=== PATIENT | male | born 1990 | race African-American/Black ===

== ENCOUNTER 2017-03-21 11:31 | Emergency (ER) | payer SELFPAY ==
[2017-03-21 11:42] VITALS: BP 150/70
[2017-03-21] MEDS ORDERED: METHOCARBAMOL 500 MG TABLET PO ONE (13:44)
[2017-03-21] MEDS ORDERED: NAPROXEN 250 MG TABLET PO ONE (13:44)
--- NOTE | 2017-03-21 13:50 | ER Document Report ---
ED Neck/Back Problem - General Chief Complaint: Back Pain Stated Complaint: LOW BACK PAIN Time Seen by Provider: 03/21/17 13:26 Mode of Arrival: Ambulatory Information source: Patient Notes: 26-year-old male presents to ED for complaint of back pain 2 days in his lower back. He states he was moving furniture and thinks he injured his back at work. Right lower back is where his pain is. He has no vertebral tenderness. He ambulates freely with no acute distress noted. TRAVEL OUTSIDE OF THE [place] IN LAST 30 DAYS: No - HPI Patient complains to provider of: Lower back Onset: Other - 2 days Where: Work Onset: Gradual Timing: Still present, Better Quality of pain: Sharp Severity: Mild Pain Level: 1 Context: Lifting Recent injury: Yes Associated symptoms: Lower back pain. denies: Constipation, Incontinence, Like prior neck/back pain, Motor loss, Numbness/tingling, Radiation to leg, Sensory loss, Unable to urinate Exacerbated by: Movement of trunk Relieved by: Nothing Similar symptoms previously: No Recently seen / treated by doctor: No - Related Data Allergies/Adverse Reactions: No Known Allergies Allergy (Unverified 03/21/17 11:40) Past Medical History - General Information source: Patient - Social History Smoking Status: Current Every Day Smoker Cigarette use (# per day): Yes - 6-7 cigarettes a day Chew tobacco use (# tins/day): No Smoking Education Provided: Yes - less than 1 minute Frequency of alcohol use: Social Drug Abuse: None Occupation: Furniture store Lives with: Spouse/Significant other Family History: Arthritis, Hypertension Patient has suicidal ideation: No Patient has homicidal ideation: No - Past Medical History Cardiac Medical History: Reports: None Pulmonary Medical History: Reports: None EENT Medical History: Reports: None Neurological Medical History: Reports: None Endocrine Medical History: Reports: None Renal/ Medical History: Reports: None Malignancy Medical History: Reports None GI Medical History: Reports: None Musculoskeltal Medical History: Reports Hx Musculoskeletal Trauma Skin Medical History: Reports None Psychiatric Medical History: Reports: None Traumatic Medical History: Reports: None Infectious Medical History: Reports: None Surgical Hx: Negative - Immunizations Hx Diphtheria, Pertussis, Tetanus Vaccination: No Review of Systems - Review of Systems Constitutional: No symptoms reported EENT: No symptoms reported Cardiovascular: No symptoms reported Respiratory: No symptoms reported Gastrointestinal: No symptoms reported. denies: Constipation, Last bowel movement, Fecal incontinence Genitourinary: No symptoms reported. denies: Hematuria, Incontinence, Retention Male Genitourinary: No symptoms reported Musculoskeletal: Back pain Skin: No symptoms reported Hematologic/Lymphatic: No symptoms reported Neurological/Psychological: No symptoms reported -: Yes All other systems reviewed and negative Physical Exam - Vital signs Vitals: Temp Pulse Resp BP Pulse Ox 98.5 F 76 18 150/70 H 98 03/21/17 11:41 03/21/17 11:41 03/21/17 11:41 03/21/17 11:41 03/21/17 11:41 Interpretation: Normal - General General appearance: Appears well, Alert - HEENT Head: Normocephalic, Atraumatic Eyes: Normal Pupils: PERRL - Respiratory Respiratory status: No respiratory distress Chest status: Nontender Breath sounds: Normal Chest palpation: Normal - Cardiovascular Rhythm: Regular Heart sounds: Normal auscultation Murmur: No - Abdominal Inspection: Normal Distension: No distension Bowel sounds: Normal Tenderness: Nontender Organomegaly: No organomegaly - Back Back: Normal, Tender - Right lower back. No: Deformity/step-off, CVA tenderness , Vertebra tenderness, Scars, Scoliosis, Wounds - Extremities General upper extremity: Normal inspection, Nontender, Normal color, Normal ROM , Normal temperature General lower extremity: Normal inspection, Nontender, Normal color, Normal ROM , Normal temperature, Normal weight bearing. No: Blake's sign - Neurological Neuro grossly intact: Yes Cognition: Normal Orientation: AAOx4 Michelle Coma Scale Eye Opening: Spontaneous Michelle Coma Scale Verbal: Oriented Michelle Coma Scale Motor: Obeys Commands Michelle Coma Scale Total: 15 Speech: Normal Motor strength normal: LUE, RUE, LLE, RLE Sensory: Normal - Psychological Associated symptoms: Normal affect, Normal mood - Skin Skin Temperature: Warm Skin Moisture: Dry Skin Color: Normal Course - Re-evaluation Re-evalutation: 03/21/17 20:44 No signs of cauda equina no signs loss of sensation control of bowel bladder no urinary retention no constipation. Patient discharged home with anti- inflammatories and muscle relaxers. - Vital Signs Vital signs: Temp Pulse Resp BP Pulse Ox 98.5 F 76 18 150/70 H 98 03/21/17 11:41 03/21/17 11:41 03/21/17 11:41 03/21/17 11:41 03/21/17 11:41 Discharge - Discharge Clinical Impression: Low back pain Qualifiers: Chronicity: acute Back pain laterality: right Sciatica presence: without sciatica Qualified Code(s): M54.5 - Low back pain Condition: Stable Disposition: HOME, SELF-CARE Instructions: Stretching Exercises for the Back ([facility]), Family Physicians / Practices Additional Instructions: LOW BACK PAIN: Three out of every four people will have an episode of disabling back pain during their lifetime. Most commonly the pain is due to straining of the muscles and ligaments in the low back. Usual treatment includes: (1) Rest on a firm surface. Avoid lying on your stomach. (2) Ice pack the painful area. After a few days, gentle heat may be used intermittently to relax the area, or ice packs can be continued. (3) Medication may be needed -- muscle relaxers and antiinflammatory medicines are commonly used. (4) As the back improves, exercises are prescribed to strengthen the back and abdominal muscles. Your doctor will advise you on the proper care for your back at each stage in your recovery. You may be better in a few days -- or healing may take several weeks. If new symptoms of a "herniated disc" (radiation of pain, numbness, or tingling down the back of the leg or weakness in the leg) occur, you should be re-examined. Further testing may be necessary. Anti-Inflammatory Medication You have received a prescription for an antiinflammatory agent. This is an excellent, safe drug for pain control. In addition, it has potent antiinflammatory effects which are beneficial, especially in the treatment of injuries, arthritis, or tendonitis. It's best to take this medicine with food. Persons with ulcer disease or allergy to aspirin should notify their physician of this before taking this drug. Take the medication exactly as prescribed. Don't take additional doses unless instructed to do so by your doctor. If you develop wheezing, shortness of breath, hives, faintness, stomach pain, vomiting, or dark black stools, return for re-evaluation at once. MUSCLE RELAXERS: Muscle relaxing medications are usually prescribed for acute muscle spasm or injury to the neck and back. They are often combined with antiinflammatory pain medication for increased relief. You may stop the muscle relaxer when the pain and stiffness have improved. Start the medication again if spasms recur. Muscle relaxers may cause drowsiness, especially with the first dose. Do not operate machinery or drive while under the effects of the medication. Most muscle relaxers last up to 24 hours. Do not combine the medication with alcohol. ICE PACKS: Apply ice packs frequently against the painful area. Many different schedules are recommended, such as "20 minutes on, 20 minutes off" or "one hour ice, two hours rest." If you need to work, you may need to go longer between ice treatments. You should plan to have the area ice packed AT LEAST one fourth of the time. The ice should be applied over the wrap, tape, or splint, or over a layer of cloth -- not directly against the skin. Some ice bags have a built-in cloth and can be put directly on the skin. WARM PACKS: After approximately two days, apply gentle heat (such as a heating pad or hot water bottle) for about 20 to 30 minutes about every two hours -- at least four times daily. Warmth and elevation will help you make a more rapid recovery , and will ease the pain considerably. Do not use HOT heat, and never apply heat for longer than 30 minutes. The continuous heat can invisibly damage skin and muscles -- even when no burn is seen on the surface. Damaged muscles can make you MORE sore. FOLLOW-UP CARE: If you have been referred to a physician for follow-up care, call the physician s office for an appointment as you were instructed or within the next two days. If you experience worsening or a significant change in your symptoms, notify the physician immediately or return to the Emergency Department at any time for re-evaluation. Prescriptions: Methocarbamol [Robaxin 500 mg Tablet] 500 mg PO BIDP PRN #14 tablet PRN Reason: Naproxen 500 mg PO BIDP PRN #14 tablet PRN Reason: Forms: Elevated Blood Pressure, Smoking Cessation Education, Return to Work
== END 2017-03-21 14:07 | disposition home or self-care (01) ==
LOC: ER 11:31
DX: M54.5 Low back pain (principal); F17.210 Nicotine dependence, cigarettes, uncomplicated; X58.XXXA Exposure to other specified factors, initial encounter; Y99.0 Civilian activity done for income or pay
CPT/HCPCS: 99283

== ENCOUNTER 2019-09-25 19:26 | Emergency (ER) | payer BC ==
[2019-09-25 19:39] VITALS: BP 161/77
[2019-09-25] MEDS ORDERED: IBUPROFEN 800 MG TABLET PO ONE (19:54)
--- NOTE | 2019-09-25 20:02 | ER Document Report ---
HPI - HPI Patient complains to provider of: right knee pain Time Seen by Provider: 09/25/19 19:51 Onset: Other Quality of pain: Achy Pain Level: 1 Context: This 29-year-old male relatively healthy who presents emergency department with complaints of right knee pain. Reports he has had knee pain for many years but recently started a new job moving furniture. Reports he is going up and down steps more his knee starts hurting feels that popping. Denies past medical history of injury to the knee. Denies trauma. No other complaints such as fever vomiting diarrhea. Patient reports he took BC powders without relief of symptoms. Associated Symptoms: None Exacerbated by: Movement Relieved by: Denies Similar symptoms previously: Yes Recently seen / treated by doctor: No - MUSCULOSKELETAL Musculoskeletal: REPORTS: Extremity pain - rt knee Past Medical History - General Information source: Patient - Social History Smoking Status: Current Every Day Smoker Cigarette use (# per day): Yes Frequency of alcohol use: Occasional Drug Abuse: None Occupation: Moving furniture Family History: Arthritis, Hypertension Patient has suicidal ideation: No Patient has homicidal ideation: No - Past Medical History Cardiac Medical History: Denies: Hx Coronary Artery Disease Pulmonary Medical History: Denies: Hx Asthma Endocrine Medical History: Denies: Hx Diabetes Mellitus Type 1, Hx Diabetes Mellitus Type 2 Renal/ Medical History: Denies: Hx Peritoneal Dialysis Musculoskeletal Medical History: Reports Hx Musculoskeletal Trauma Surgical Hx: Negative - Immunizations Hx Diphtheria, Pertussis, Tetanus Vaccination: No Vertical Provider Document - CONSTITUTIONAL Agree With Documented VS: Yes Exam Limitations: No Limitations General Appearance: WD/WN, No Apparent Distress - INFECTION CONTROL TRAVEL OUTSIDE OF THE [place] IN LAST 30 DAYS: No - HEENT HEENT: Atraumatic, Normocephalic - NECK Neck: Supple - RESPIRATORY Respiratory: No Respiratory Distress - CARDIOVASCULAR Cardiovascular: Regular Rate - MUSCULOSKELETAL/EXTREMETIES Musculoskeletal/Extremeties: MAEW, FROM, Non-Tender - Right knee nontender to palpation. Patient reports no pain at this time. No erythema no swelling no warmth no obvious deformity flexes and extends leg without problems - NEURO Level of Consciousness: Awake, Alert, Appropriate Motor/Sensory: No Motor Deficit - DERM Integumentary: Warm, Dry Adult Front & Back Diagram: 1 - Reports knee pain. Reports he feels it pop every now and then. Course - Re-evaluation Re-evalutation: 09/25/19 20:00 29-year-old male presents emergency department with complaints of right knee pain that comes and goes for the past 5 years. 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 Took BC powder without relief of symptoms. Motrin and x-ray ordered. 09/25/19 20:52 Knee X-Ray 09/25/19 19:54 IMPRESSION: Unremarkable right knee series. Patient instructed on negative x-ray. Instructed on Faisal wrap rest ice elevate take ibuprofen as indicated for pain follow-up with orthopedics for continued pain he verbalized understanding to all instructions. - Vital Signs Vital signs: Temp Pulse Resp BP Pulse Ox 98.5 F 79 16 161/77 H 99 09/25/19 19:38 09/25/19 19:38 09/25/19 19:38 09/25/19 19:38 09/25/19 19:38 - Diagnostic Test Radiology reviewed: Reports reviewed Discharge - Discharge Clinical Impression: Right knee pain Qualifiers: Chronicity: chronic Qualified Code(s): M25.561 - Pain in right knee Condition: Stable Disposition: HOME, SELF-CARE Instructions: Faisal Wrap ([facility]), Use of Vrir-[id number]-[id number] Ibuprofen ([facility]), Ice & Elevation ([facility]) Additional Instructions: *You have been evaluated for right knee pain Your knee x-ray was negative for an acute injury *Maintain the Faisal wrap *Rest/Ice/Elevate your knee *Follow up with orthopedics within 1 week for evaluation *Take ibuprofen as indicated for pain *Return to ED for worsening condition, changes, needs Monitor your blood pressure. Your blood pressure was elevated today. This may be because you were anxious, in pain or because you need medication. It is important to follow up with your primary care provider for full evaluation. Forms: Elevated Blood Pressure, Smoking Cessation Education, Return to Work
--- NOTE | 2019-09-25 20:51 | RADIOLOGY REPORT (SQ) ---
EXAM DESCRIPTION: Right knee, three view series CLINICAL HISTORY: 29 years Male, pain COMPARISON: None. FINDINGS: No evidence for fracture dislocation. No suspicious bone, joint space or soft tissue abnormalities. No evidence for joint effusion. IMPRESSION: Unremarkable right knee series.
== END 2019-09-25 21:00 | disposition home or self-care (01) ==
LOC: ER 19:26
DX: M25.561 Pain in right knee (principal); F17.210 Nicotine dependence, cigarettes, uncomplicated
CPT/HCPCS: 99283